=== PATIENT | female | born 2000 | race Two or more races ===

== ENCOUNTER 2023-06-16 09:07 | Emergency (ER) | payer MEDICAID, OTHER ==
[~2023-06-16] VITALS: Ht 157.5 cm; Wt 81.8 kg
[2023-06-16 09:08] VITALS: TEMP 98
[2023-06-16 11:08] VITALS: BP 121/73; PULSE 89; RESP 16
[2023-06-16] MEDS ORDERED: ACET-66 PO (11:37)
[2023-06-16] MEDS ORDERED: IBUP-1554 PO (11:37)
== END 2023-06-16 11:48 | disposition home or self-care (01) ==
LOC: EMS 10:01
DX: S20.01XA Contusion of right breast, initial encounter (principal); W22.8XXA Striking against or struck by other objects, initial encounter; Y93.89 Activity, other specified; Y92.89 Other specified places as the place of occurrence of the external cause; Y99.8 Other external cause status
CPT/HCPCS: 29505; 71101; 99283

== ENCOUNTER 2023-10-09 09:41 | Emergency (ER) | payer OTHER ==
[~2023-10-09] VITALS: Ht 157.5 cm; Wt 81.8 kg
[~2023-10-09 09:41] MED LIST: ACET-66 PO; IBUP-1554 PO
[2023-10-09 09:53] VITALS: TEMP 98.3
[2023-10-09 10:04] LABS: COVID AG,FIA SOURCE NASAL SWAB
[2023-10-09 10:15] LABS: RAPID GROUP A STREP NEGATIVE (NEGATIVE)
[2023-10-09 10:26] LABS: SARS-COV2 (COVID) ANTIGEN,FIA Negative (Negative)
[2023-10-09 10:27] LABS: INFLUENZA TYPE A NEGATIVE FOR TYPE A (NEGATIVE); INFLUENZA TYPE B NEGATIVE FOR TYPE B (NEGATIVE)
[2023-10-09] MEDS ORDERED: AMOX500C2 PO (11:09)
[2023-10-09 11:15] VITALS: BP 137/76; PULSE 73; RESP 16
== END 2023-10-09 11:23 | disposition home or self-care (01) ==
LOC: EMS 09:41
DX: J32.9 Chronic sinusitis, unspecified (principal); Z90.49 Acquired absence of other specified parts of digestive tract; Z20.822 Contact with and (suspected) exposure to COVID-19
CPT/HCPCS: 87430; 87804; 99283

== ENCOUNTER 2024-01-28 10:56 | Emergency (ER) | payer OTHER ==
[~2024-01-28] VITALS: Ht 157.5 cm; Wt 84.1 kg
[~2024-01-28 10:56] MED LIST changes: +AMOX500C2 PO
[2024-01-28 11:14] VITALS: BP 136/69; PULSE 85; RESP 14; TEMP 98.2
[2024-01-28] MEDS: ACETAMINOPHEN 325 MG TABLET PO ONE (11:23)
[2024-01-28 11:37] LABS: BASOPHILS % (AUTO) 0.6 % (0.0-2.0); EOSINOPHILS % (AUTO) 0.8 % (1.0-6.0); HEMATOCRIT 39.8 % (36-46); LYMPHOCYTES # (AUTO) 2.1 K/uL (1.0-4.8); LYMPHOCYTES % (AUTO) 20.7 % (22.0-44.0); MEAN CORPUSCULAR HGB CONC 32.8 G/dL (31.0-37.0); MEAN CORPUSCULAR VOLUME 82 fL (80-100); MONOCYTES # (AUTO) 0.6 K/uL (0.1-1.0); MONOCYTES % (AUTO) 6.4 % (2.0-9.0); NEUTROPHILS # (AUTO) 7.2 K/uL (1.8-7.7); NEUTROPHILS % (AUTO) 71.5 % (40.0-70.0); PLATELET COUNT (AUTO) 242 K/uL (150-450); RED BLOOD CELL COUNT(AUTO) 4.84 MIL/uL (4.00-5.20); RED CELL DISTRIBUTION WIDTH 13.5 % (11.5-14.5); WHITE BLOOD COUNT (AUTO) 10.1 K/uL (4.5-11.0)
[2024-01-28 11:45] LABS: ANION GAP 8 mmol/L (8-16); CALCIUM, TOTAL 8.9 mg/dL (8.8-10.5); CARBON DIOXIDE 27 mmol/L (22-29); CHLORIDE 105 mmol/L (98-107); CREATININE 0.49 mg/dL (0.60-1.30); GLOMERULAR FILTR. RATE CALC > 60 mL/min (>60); GLUCOSE,RANDOM 94 mg/dL (70-110); POTASSIUM 3.8 mmol/L (3.5-5.1); SODIUM SERUM 140 mmol/L (136-145); UREA NITROGEN, BLOOD 10 mg/dL (7-18)
[2024-01-28 11:51] LABS: CREATINE KINASE, TOTAL ONLY 54 U/L (26-192)
[2024-01-28 11:52] LABS: TROPONIN I-HIGH SENSITIVITY 8 ng/L (<51)
[2024-01-28] MEDS ORDERED: ACET-3385 PO (11:58)
== END 2024-01-28 12:13 | disposition home or self-care (01) ==
LOC: EMS 11:16
DX: S50.01XA Contusion of right elbow, initial encounter (principal); R55 Syncope and collapse; F12.90 Cannabis use, unspecified, uncomplicated; Z90.49 Acquired absence of other specified parts of digestive tract; W19.XXXA Unspecified fall, initial encounter; Y93.89 Activity, other specified; Y92.89 Other specified places as the place of occurrence of the external cause; Y99.8 Other external cause status
CPT/HCPCS: 80048; 82550; 84484; 84703; 85025; 93005; 99285

== ENCOUNTER 2024-12-18 09:57 | Emergency (ER) | payer OTHER ==
[~2024-12-18] VITALS: Ht 157.5 cm; Wt 72.7 kg
[~2024-12-18 09:57] MED LIST changes: +ACET-3385 PO; -ACET-66 PO; -AMOX500C2 PO; -IBUP-1554 PO
[2024-12-18 10:26] VITALS: TEMP 98.3
[2024-12-18 10:39] LABS: COVID AG,FIA SOURCE NASAL SWAB
[2024-12-18 11:20] LABS: SARS-COV2 (COVID) ANTIGEN,FIA Negative (Negative)
[2024-12-18 11:21] LABS: INFLUENZA TYPE A NEGATIVE FOR TYPE A (NEGATIVE); INFLUENZA TYPE B NEGATIVE FOR TYPE B (NEGATIVE)
[2024-12-18] MEDS: ERYTHROMYCIN 0.5% 3.5 GM TUBE OPHTHALMIC OINTMENT OU ONE (13:36)
[2024-12-18] MEDS ORDERED: ERYT3.5O8 OU (13:43)
[2024-12-18 13:46] VITALS: BP 124/77; PULSE 78; RESP 16; O2SAT 99
== END 2024-12-18 13:54 | disposition home or self-care (01) ==
LOC: EMS 10:03
DX: H10.89 Other conjunctivitis (principal); F12.90 Cannabis use, unspecified, uncomplicated; Z90.49 Acquired absence of other specified parts of digestive tract; Z20.822 Contact with and (suspected) exposure to COVID-19
CPT/HCPCS: 87804; 99283

== ENCOUNTER 2025-02-02 23:38 | Emergency (ER) | payer OTHER ==
[~2025-02-02] VITALS: Ht 157.5 cm; Wt 59.1 kg
[~2025-02-02 23:38] MED LIST changes: -ACET-3385 PO; +ERYT3.5O8 OU
[2025-02-02 23:41] VITALS: BP 104/73; PULSE 87; RESP 16; TEMP 97.9; O2SAT 97
[2025-02-03] MEDS: AMOX TR/POT CLAV 875 MG/125 MG TABLET PO ONE (01:07)
[2025-02-03] MEDS: PERTUSS(ACELL),DIPH,TET/PF 0.5 ML SYRINGE [ADULT] IM. ONE (01:08)
[2025-02-03] MEDS ORDERED: AMOX-457 PO (01:10)
== END 2025-02-03 01:15 | disposition home or self-care (01) ==
LOC: EMS 23:38
DX: S41.152A Open bite of left upper arm, initial encounter (principal); S41.151A Open bite of right upper arm, initial encounter; F12.90 Cannabis use, unspecified, uncomplicated; Z90.49 Acquired absence of other specified parts of digestive tract; Z79.899 Other long term (current) drug therapy; Y04.1XXA Assault by human bite, initial encounter; Y93.89 Activity, other specified; Y92.89 Other specified places as the place of occurrence of the external cause; Y99.0 Civilian activity done for income or pay
CPT/HCPCS: 90471; 90715; 99283

== ENCOUNTER 2025-03-03 20:56 | Emergency (ER) | payer OTHER ==
[~2025-03-03] VITALS: Ht 157.5 cm; Wt 79.5 kg
[~2025-03-03 20:56] MED LIST changes: +AMOX-457 PO
[2025-03-03 20:58] VITALS: TEMP 98.2
[2025-03-03 21:24] LABS: APPEARANCE,URINE HAZY (CLEAR); GLUCOSE, URINE (UA) NEGATIVE (NEGATIVE); LEUKOCYTE ESTERASE ,URINE TRACE (NEGATIVE); NITRATE,URINE NEGATIVE (NEGATIVE); OCCULT BLOOD,URINE NEGATIVE (NEGATIVE); SPECIFIC GRAVITIY, URINE 1.024 (1.003-1.030)
[2025-03-03 21:33] LABS: SQUAMOUS EPITHELIAL CELL,UR Many /LPF (None Seen)
[2025-03-03 21:34] LABS: CALCIUM OXALATE CRYSTALS,UR Few /LPF (None Seen)
[2025-03-03 21:40] VITALS: BP 139/89; PULSE 82; RESP 18; O2SAT 98
[2025-03-03 22:55] LABS: PLATELET COUNT (AUTO) 232 K/uL (150-450); RED BLOOD CELL COUNT(AUTO) 4.64 MIL/uL (4.00-5.20); RED CELL DISTRIBUTION WIDTH 13.0 % (11.5-14.5); WHITE BLOOD COUNT (AUTO) 10.5 K/uL (4.5-11.0)
[2025-03-03 22:59] LABS: CALCIUM, TOTAL 9.0 mg/dL (8.8-10.5); CREATININE 0.64 mg/dL (0.60-1.30); GLOMERULAR FILTR. RATE CALC > 60 mL/min (>60); GLUCOSE,RANDOM 86 mg/dL (70-110); SODIUM SERUM 140 mmol/L (136-145); UREA NITROGEN, BLOOD 6 mg/dL (7-18)
[2025-03-03 23:03] LABS: ASPARTATE AMINOTRANSFERASE 14.0 U/L (15-37); TOTAL PROTEIN, SERUM 6.6 g/dL (6.4-8.2)
[2025-03-04] MEDS ORDERED: CEPH-558 PO (00:40)
== END 2025-03-04 01:03 | disposition home or self-care (01) ==
LOC: EMS 21:04
DX: N39.0 Urinary tract infection, site not specified (principal); N83.209 Unspecified ovarian cyst, unspecified side; F12.90 Cannabis use, unspecified, uncomplicated; Z90.49 Acquired absence of other specified parts of digestive tract; Z79.899 Other long term (current) drug therapy
CPT/HCPCS: 76700; 76856; 80048; 80076; 81001; 83690; 85025; 99284

== ENCOUNTER 2025-06-25 11:30 | Emergency (ER) | payer OTHER ==
[~2025-06-25] VITALS: Ht 157.5 cm; Wt 79.0 kg
[~2025-06-25 11:30] MED LIST changes: +CEPH-558 PO
[2025-06-25 11:38] VITALS: BP 113/74; PULSE 81; RESP 18; TEMP 98.2; O2SAT 99
[2025-06-25 12:20] LABS: APPEARANCE,URINE CLEAR (CLEAR); GLUCOSE, URINE (UA) NEGATIVE (NEGATIVE); LEUKOCYTE ESTERASE ,URINE NEGATIVE (NEGATIVE); NITRATE,URINE NEGATIVE (NEGATIVE); OCCULT BLOOD,URINE LARGE (NEGATIVE); SPECIFIC GRAVITIY, URINE 1.024 (1.003-1.030)
[2025-06-25 12:23] LABS: HCG,QUAL URINE NEGATIVE (NEGATIVE)
[2025-06-25 12:27] LABS: PLATELET COUNT (AUTO) 285 K/uL (150-450); RED BLOOD CELL COUNT(AUTO) 4.57 MIL/uL (4.00-5.20); RED CELL DISTRIBUTION WIDTH 12.5 % (11.5-14.5); WHITE BLOOD COUNT (AUTO) 10.8 K/uL (4.5-11.0)
[2025-06-25 12:37] LABS: CALCIUM, TOTAL 8.6 mg/dL (8.8-10.5); CREATININE 0.49 mg/dL (0.60-1.30); GLOMERULAR FILTR. RATE CALC > 60 mL/min (>60); GLUCOSE,RANDOM 103 mg/dL (70-110); SODIUM SERUM 138 mmol/L (136-145); UREA NITROGEN, BLOOD 9 mg/dL (7-18)
[2025-06-25] MEDS ORDERED: HYDR-4062 PO (14:33)
[2025-06-25] MEDS ORDERED: IBUP-1554 PO (14:33)
[2025-06-25] MEDS ORDERED: OMEP-148 PO (14:33)
[2025-06-25] MEDS ORDERED: ONDA-104 PO (14:33)
== END 2025-06-25 15:18 | disposition home or self-care (01) ==
LOC: EMS 11:56
DX: N83.202 Unspecified ovarian cyst, left side (principal); R10.20 Pelvic and perineal pain unspecified side; N92.1 Excessive and frequent menstruation with irregular cycle; N94.6 Dysmenorrhea, unspecified; F12.90 Cannabis use, unspecified, uncomplicated; Z90.49 Acquired absence of other specified parts of digestive tract
CPT/HCPCS: 76856; 80048; 81001; 84703; 85025; 99284